=== PATIENT | male | born 1975 | race Caucasian/White ===

== ENCOUNTER 2021-01-25 11:40 | Emergency (ER) | payer SELFPAY ==
[2021-01-25 12:53] LABS: HEMOGLOBIN 16.5 gm/dl (14.0-17.5); RED BLOOD COUNT 5.71 M/UL (4.20-5.50); WHITE BLOOD COUNT 3.4 K/UL (4.5-11.0)
[2021-01-25 13:14] LABS: BUN/CREATININE RATIO 8 (0-10)
== END 2021-01-25 16:05 | disposition home or self-care (01) ==
LOC: ER1 11:40
PROVIDERS: Physician Assistant
DX: Z23 Encounter for immunization (principal); U07.1 COVID-19; F17.200 Nicotine dependence, unspecified, uncomplicated
CPT/HCPCS: 80053; 85025; 93005; 99283; M0243